=== PATIENT | female | born 1965 | race Caucasian/White ===

== ENCOUNTER 2017-10-03 10:20 | Emergency (ER) | payer OTHER ==
[2017-10-03 10:37] VITALS: BP 141/87
--- NOTE | 2017-10-03 10:39 | UC ---
Complaint Female HPI - HPI Summary HPI Summary: 52 year old female with UTI Sx. Woke this morning with urinary freq/pain/ burning. No fever [ End ] - History Of Current Complaint Chief Complaint: UCGU Stated Complaint: URINARY Time Seen by Provider: 10/03/17 10:26 Hx Obtained From: Patient Hx Last Menstrual Period: 09/26/17 Onset/Duration: Sudden Onset Timing: Constant Severity Initially: Mild Pain Intensity: 0 Aggravating Factor(s): Urination Associated Signs And Symptoms: Positive: Negative - Allergies/Home Medications Allergies/Adverse Reactions: Allergies Allergy/AdvReac Type Severity Reaction Status Date / Time No Known Allergies Allergy Verified 10/03/17 10:37 PMH/Surg Hx/FS Hx/Imm Hx Previously Healthy: Yes - Surgical History Surgical History: None - Family History Known Family History: Positive: None - Social History Occupation: Employed Full-time - assistant professor of mathematics at [email or web address] Alcohol Use: Occasionally Substance Use Type: None Smoking Status (MU): Never Smoked Tobacco Review of Systems Genitourinary: Dysuria, Frequency, Urgency Is Patient Immunocompromised?: No All Other Systems Reviewed And Are Negative: Yes Physical Exam Triage Information Reviewed: Yes Appearance: Well-Appearing, No Pain Distress, Well-Nourished Vital Signs: Initial Vital Signs Temp 98.0 F 10/03/17 10:31 Pulse 62 10/03/17 10:31 Resp 16 10/03/17 10:31 BP 141/87 10/03/17 10:31 Pulse Ox 100 10/03/17 10:31 Vital Signs Reviewed: Yes Eye Exam: Normal ENT Exam: Normal Neck exam: Normal Neck: Positive: 1 Respiratory Exam: Normal Cardiovascular Exam: Normal Abdominal Exam: Normal Abdomen Description: Negative: CVA Tenderness (R), CVA Tenderness (L) Musculoskeletal Exam: Normal Neurological Exam: Normal Psychological Exam: Normal Skin Exam: Normal Complaint Female Dx - Course Course Of Treatment: she is aware of SE of abx,. asking for first time dose as she can not go to the pharmacy for a few hours - Differential Dx/Diagnosis Differential Diagnosis/HQI/PQRI: Urinary Tract Infection Provider Diagnoses: UTI Discharge - Sign-Out/Discharge Documenting (check all that apply): Patient Departure - Discharge Plan Condition: Good Disposition: HOME Prescriptions: Sulfamethox/Trimethoprim DS* [Bactrim DS 800/160 TAB*] 1 tab PO BID 3 Days #6 tab Patient Education Materials: Urinary Tract Infection in Women (DC) Referrals: Non Staff,Doctor [Primary Care Provider] - If Needed - Billing Disposition and Condition Condition: GOOD Disposition: Home
[2017-10-03] MEDS ORDERED: Sulfamethox/Trimethoprim DS 800/160* TAB PO ONE (11:00)
--- NOTE | 2017-10-05 16:52 | UC ---
Course/Dx - Course Course Of Treatment: Patient called. Patient continues to have symptoms. Patient culture reviewed. Patient is resistant to Bactrim which she was prescribed. There spoke with patient by phone. No prescription for Macrobid as well as Pyridium. Patient declined Diflucan. Patient encouraged to drink fluids. Patient cautioned of orange urine. Return precautions discussed with patient. Discharge - Sign-Out/Discharge Documenting (check all that apply): Post-Discharge Follow Up - Discharge Plan Condition: Good Disposition: HOME Prescriptions: Nitrofurantoin Monohyd/M-Cryst [Macrobid 100 mg Capsule] 100 mg PO BID #14 cap Phenazopyridine TAB* [Pyridium 100 mg TAB*] 100 mg PO TID PRN #9 tab PRN Reason: burning with urination Sulfamethox/Trimethoprim DS* [Bactrim DS 800/160 TAB*] 1 tab PO BID 3 Days #6 tab Patient Education Materials: Urinary Tract Infection in Women (DC) Referrals: Non Staff,Doctor [Primary Care Provider] - If Needed - Billing Disposition and Condition Condition: GOOD Disposition: Home
== END 2017-10-03 11:10 | disposition home or self-care (01) ==
LOC: UCCORT 10:20
DX: N39.0 Urinary tract infection, site not specified (principal)
CPT/HCPCS: 81003; 87077; 87086; 87186; 99202; A9270-GY; G0463